=== PATIENT | male | born 1970 | race Caucasian/White ===

== ENCOUNTER 2017-06-14 17:29 | Emergency (ER) | payer OTHER ==
[~2017-06-14] VITALS: Ht 167.6 cm; Wt 73.9 kg
[2017-06-14 17:36] VITALS: Ht 167.6 cm; Wt 73.9 kg
[2017-06-14 21:20] VITALS: BP 123/87
== END 2017-06-14 21:20 | disposition home or self-care (01) ==
LOC: ED 17:29
DX: S32.021A Stable burst fracture of second lumbar vertebra, initial encounter for closed fracture (principal); F17.210 Nicotine dependence, cigarettes, uncomplicated; W11.XXXA Fall on and from ladder, initial encounter; Y93.89 Activity, other specified; Y92.89 Other specified places as the place of occurrence of the external cause; Y99.8 Other external cause status
CPT/HCPCS: Q0162